=== PATIENT | female | born 1950 | race Caucasian/White ===

== ENCOUNTER 2017-05-17 08:36 | Inpatient (IN) | payer MEDICARE, MEDICAID ==
[~2017-05-17] VITALS: Ht 170.2 cm; Wt 80.0 kg
[2017-05-17] VITALS (15 sets, daily range): BP systolic 135–171; BP diastolic 62–92; PULSE 56–68; RESP 13–21; O2SAT 98–100
[2017-05-17] MEDS: Lactated Ringer's 1,000 ML IV SCH ×4 (05:00→12:28)
--- NOTE | 2017-05-17 06:40 | PCM.HPANE ---
Patient Data Surgeon Admitting Provider: Attending Provider:Scott Durand DO Primary Care Physician:Tato Ovalle DO Other Provider:Elvi Lehman Anesthesia Reason for Visit Right Knee Failed Arthroplasty Ht/WT & BMI Height (Feet): 5 Height (Inches): 7 Weight (Kilograms): 85.27 Body Mass Index 29.00 Allergies Coded Allergies: Penicillins (Verified Allergy, Severe, Rash,Itching,, 06/19/16) gabapentin (Verified Adverse Reaction, Intermediate, Headache, 06/19/16) codeine (Verified Adverse Reaction, Mild, Nausea,Vomiting, 06/19/16) OK IF TAKES ZOFRAN BEFORE oxycodone HCl (Verified Adverse Reaction, Unknown, sick to stomach, ) Past Anesthesia History Anesthesia History: Denies:: Anesthesia Reactions, Fam Anesthesia Reaction, Fam Malignant Hypertherm, Malignant Hyperthermia Diabetes History Hx Diabetes?: No MRSA MRSA: No Medications Blood Thinner: Aspirin Hypertension Medication: Yes Home Meds Incl Beta Armen: No Reported Medications Travoprost (Travatan Z)5 Ml Drops1 Drop AFFECT_EYE HS #5 05/17/17 Timolol Maleate 5 Ml Elda.gel1 Drop AFFECT_EYE DAILY #5 05/17/17 Hydrocodone-Acetaminophen 5-325 mg 1 Each Tablet1 Tablet PO Q4H PRN For Pain Ref 0 05/17/17 Tramadol 50 Mg Jibxsj92 Mg PO PRN #30 05/17/17 Ondansetron (Zofran)4 Mg Tablet4 Mg PO Q4H PRN For Nausea 05/13/17 Bupropion ER (Wellbutrin SR)100 Mg Tablet.er100 Mg PO TID Ref 0 05/13/17 Omeprazole 20 Mg Capsule.dr20 Mg PO DAILY Ref 0 05/13/17 Bisbee-3 Fatty Acids/Fish Oil (Bisbee 3 Fish Oil Softgel)1 Each Capsule.dr1 Each PO DAILY 05/13/17 Multivitamin (Multi Vitamin Daily)1 Each Tablet1 Each PO DAILY 30 Days Ref 0 05/13/17 Lisinopril 10 Mg Ehainj81 Mg PO DAILY 30 Days Ref 0 05/13/17 Levothyroxine 75 Mcg Qaejsd48 Mcg PO DAILY Ref 0 05/13/17 Ubidecarenone/Vitamin E Mixed (Phz67-Dab E 100 mg-10 Unit Sfg)100 Mg-10 Unit Capsule1 Each PO DAILY 05/13/17 Aspirin 325 Mg Buccmz498 Mg PO DAILY #1 BOTTLE 05/13/17 Discontinued Reported Medications Atenolol 25 Mg Fquvnp18.5 Mg PO DAILY Ref 0 06/07/15 Cholecalciferol (Vitamin D3) (Vitamin D-3)2,000 Unit Tablet2,000 Unit PO DAILY 07/22/14 Lansoprazole (Prevacid)15 Mg Capsule.dr15 Mg PO DAILY #30 CAPSULE Ref 0 07/22/14 Bisbee-3 Fatty Acids/Fish Oil (Bisbee 3 1,000 mg Softgel)1 Each Capsule1 Each PO DAILY 07/22/14 Multivitamin (Multivitamins)1 Each Tablet1 Each PO DAILY 07/22/14 Lisinopril 40 Mg Suezpe76 Mg PO DAILY 30 Days Ref 0 07/22/14 Levothyroxine 25 Mcg Xmdxtg39 Mcg PO DAILY 30 Days Ref 0 07/22/14 Hydrochlorothiazide 12.5 Mg Gctbvd86.5 Mg PO DAILY 30 Days Ref 0 07/22/14 Fluoxetine 20 Mg Sbhhnan89 Mg PO DAILY 30 Days Ref 0 07/22/14 Aspirin (Ecotrin)325 Mg Tablet.dr325 Mg PO DAILY 07/22/14 History History of ENT Problems?: No HEENT History: Positive for:: Glaucoma Hearing Problem Sinus Problem (nose runs cont, related to OCC THERAPY ASST shunt) Denies:: Cataracts Dysphagia Denture Type: None Teeth Condition: Within Normal Limits Hx of Heart Problems?: Yes Cardiovascular History: Positive for:: Edema Hypertension Irregular Heartbeat (bradycardia) Valvular Heart Disease (echo 2013- ef 60-65%) Denies:: AICD Cardiac Surgery Chest Pain Congestive Heart Failure Heart Murmur Pacemaker Peripheral Vascular Rheumatic Fever Thrombophlebitis Hx of Respiratory Problem?: Yes Respiratory History: Positive for:: Pneumonia (single incident, remote hx ) Denies:: Asthma COPD Chest Surgery Dyspnea Emphysema Hemoptysis Oxygen Administration Pulmonary Embolism Tuberculosis Use of C-PAP Machine (KAYODE+, could not tolerate CPAP) Use of Inhalers / NEBS Hx Neurologic Problems?: Yes Neurological History: Positive for:: 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 Skin History: Denies:: History Skin Disorders? Pressure Ulcers Hx Musculoskeletal Problems?: Yes Musculoskeletal History: Positive for:: Back Injury (back aches frequent. prior hx injections, no surg) Degenerative Joint Fibromyalgia Joint Replacement (bilat. 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 Denies:: Blood Transfuse Reaction Blood Transfusions Hx Diabetes: No Hx Alcohol Use: NoHx Substance Use: No Smoking Status: Never Smoker Have You Smoked inLast 12 mo: No Stop/Bang S-Snoring: Do You Snore Loudly: No T-Tired: feel tired, fatigued: Yes O-Obsered: Observed not breath: No P-Blood Pressure: treated: Yes B- Body Mass Index > 35 kg/m2: No A- Age over 50: Yes N- Neck Large Circumference: No G- Gender Male: No KAYODE Total Score: 3 KAYODE Risk Assessment: Low Risk, <3 Yes Risk Assessment Category Category 1A: Patient has history of documented sleep apnea, and HAS NOT received any narcotic, sedative or anesthesia administration during this stay. Category 1B: Patient has history of documented sleep apnea, and HAS received any narcotic , sedative or anesthesia administration during this stay Category 2: Patient has SUSPECTED Obstructive Sleep Apnea, and HAS received any narcotic , sedative or anesthesia administration during this stay. Category 3: Patient has SUSPECTED Obstructive Sleep Apnea and HAS NOT received narcotic, sedative or anesthesia administration during this stay. Category 4: Outpatient in Procedural Areas with known sleep apnea or who screen positive for High Risk via the STOP/BANG questionnaire. Exam Exam General Appearance: Alert, Oriented X3, Cooperative, No Acute Distress HEENT/AIRWAY: MP 2 Lungs: Clear to Auscultation, Normal Air Movement Heart: Exam Unremarkable, Regular Rate/Rhythm, No Murmurs/Rubs/Gallops Plan Impression Patient chart reviewed, patient interviewed and anesthestic plan with risks, benefits, and alternatives discussed, and informed consent obtained. NPO per Anesth. Guidelines: Yes ASA Physical Status: ASA2 Mod Systemic Disease Anesthetic Plan: GA, Regional Block, SAB Bene/Risks/Altern/Consents: Yes HP Complete Prior to Induction: Yes Other Cerebral aneurysm, clipping and shunt plus CVA 2009. Stable for many years. Cheyanne Laurent MD May 17, 2017 06:40
[~2017-05-17 08:36] MED LIST: ASPI325T32 PO; BUPR100T7 PO; Bupivacaine Liposome 1.3% 20 mL Inj INFILTRATE SCH; CeFAZolin 2 Gm/50 mL D5W IV Premix IV ONE; LEVO75TA4 PO; LISI10TA PO; MULT-1018 PO; OMEG1CAP25 PO; OMEP20CA11 PO; ONDA4TAB6 PO; UBID1CAP58 PO; Vancomycin Inj 1,250 MG in 0.9% Sodium Chloride 250 ML IV ONE
[2017-05-17] MEDS ORDERED: Vancomycin 1,000mg/200 mL NS IV ONE (08:50)
[2017-05-17] MEDS ORDERED: HYDR-4003 PO (08:51)
[2017-05-17] MEDS ORDERED: TRAM50TA2 PO (08:51)
[2017-05-17] MEDS ORDERED: TIMO5SOL6 AFFECT_EYE (08:58)
[2017-05-17] MEDS ORDERED: TRAV5DRO AFFECT_EYE (08:58)
[2017-05-17] MEDS ORDERED: Lactated Ringer's 1,000 ML IV SCH (11:09)
[2017-05-17] MEDS ORDERED: Lactated Ringer's 500 ML IV PRN (11:09)
[2017-05-17] MEDS ORDERED: HYDROmorphone 1 mg/mL Inj IVPUSH PRN ×2 (11:10→15:40)
[2017-05-17] MEDS ORDERED: fentaNYL-PF 50 mCg/mL 2 mL Inj IVPUSH PRN (11:10)
[2017-05-17] MEDS ORDERED: Labetalol 5 mg/mL 4 mL Inj IV PRN (11:10)
[2017-05-17] MEDS ORDERED: Phenylephrine 10,000 mCg/mL Inj IVPUSH PRN (11:10)
[2017-05-17] MEDS ORDERED: EPHEDrine Sulfate 50 mg/mL Inj IVPUSH PRN (11:10)
[2017-05-17] MEDS ORDERED: Dexamethasone 4 mg/mL Inj IVPUSH PRN (11:10)
[2017-05-17] MEDS ORDERED: MetoCLOpramide 5 mg/mL 2 mL Inj IVPUSH PRN (11:10)
[2017-05-17] MEDS ORDERED: Atropine 0.4 mg/mL Inj IVPUSH PRN (11:10)
[2017-05-17] MEDS ORDERED: Ondansetron 2 mg/mL 2 mL Inj IVPUSH PRN (11:10)
[2017-05-17] MEDS ORDERED: 0.9% Sodium Chloride 10 mL Inj INFILTRATE ONE (11:18)
[2017-05-17] MEDS ORDERED: Bupivacaine-MPF 0.5% W/EPI 30 mL Inj INFILTRATE ONE (11:18)
[2017-05-17] MEDS ORDERED: Magnesium Hydroxide 10 mL Oral Concentration PO PRN (12:20)
[2017-05-17] MEDS ORDERED: Polyethylene Glycol (PEG) 17 Gm Powder PO PRN (12:20)
[2017-05-17] MEDS ORDERED: diphenhydrAMINE 25 mg Capsule PO PRN (12:20)
[2017-05-17] MEDS ORDERED: HYDROcodone-APAP 5-325 mg Tablet PO PRN (12:20)
[2017-05-17] MEDS ORDERED: Acetaminophen IV 1,000 MG in IV Premix 1 EACH IV ONE (12:20)
[2017-05-17] MEDS ORDERED: 0.9% Sodium Chloride 1,000 ML IV SCH (12:20)
[2017-05-17] MEDS ORDERED: Ketorolac 15 mg/mL Inj IVPUSH PRN (12:20)
[2017-05-17] MEDS ORDERED: hydrOXYzine Pamoate 25 mg Capsule PO PRN (12:20)
[2017-05-17] MEDS ORDERED: hydrOXYzine Inj 50 MG/1 mL SDV IM ONE ×3 (13:20→15:38)
--- NOTE | 2017-05-17 13:29 | PCM.ANEP1 ---
Post Anesthesia PACU Phase 1 Assessment Vital Signs Vital Signs Date Time Temp Pulse Resp B/P Pulse Ox O2 Delivery O2 Flow Rate FiO2 05/17/17 13:20 56 14 158/74 99 Room Air 05/17/17 13:10 58 16 161/62 98 Room Air 05/17/17 13:05 15 99 05/17/17 13:00 57 16 159/74 100 Room Air 05/17/17 12:55 58 13 168/69 100 Room Air 05/17/17 12:50 56 14 154/72 99 Simple Mask 10 05/17/17 12:45 36.0 59 17 147/73 99 Room Air 10 05/17/17 08:59 35.9 61 17 144/82 100 Room Air Anesthetic Administered: SAB Level of Alertness: Awake, talking ARMAS's with Equal Strength: No Pain: No Nausea or Vomiting: Yes CV Function & Hydration Stable: Yes Airway Device: Oxygen Delivery: Room Air Lungs: Clear to Auscultation, Normal Air Movement Dermatome Level: T12 (Symphysis Pubis) PACU Phase 2 Assessment Patient Instructions Provided: N/A Comments n and v throughout case. no agent or drug given that commonly causes n and v Treated with Dex 4 Ond 4 x 2. Metoclpramide in PACU then add Vistaril 25 IM x once only Cheyanne Laurent MD May 17, 2017 13:29
--- NOTE | 2017-05-17 13:37 | DRSVH ---
PROCEDURE: X-RAY RIGHT KNEE, ONE OR TWO VIEWS ([id number]) INDICATIONS: post op TECHNIQUE: 2 views of the knee were acquired. COMPARISON: [facility], CR, XR KNEE 3VW RT, 12/16/2016, 10:35. FINDINGS: Expected postoperative changes of the knee are present related to a total right knee arthroplasty. T he metallic prosthetic components are appropriately positioned without periprosthetic fracture or elías ency. Expected postoperative changes within the overlying soft tissues are present with soft tissue edema and soft tissue air. A bandage is seen overlying the anterior margin of the knee. Vascular ca lcifications are present. IMPRESSION: Expected postoperative changes related to a right knee arthroplasty. Dictated by: Steven Bell M.D. on 05/17/2017 at 12:34 Approved by: Steven Bell M.D. on 05/17/2017 at 12:35
--- NOTE | 2017-05-17 14:55 | OP ---
[address] [address] OPERATIVE REPORT PATIENT: MAHENDRA BERTRAND : 1950 MR#: [id number] ADMIT: 05/17/2017 JOB ID: [id number] DATE OF SURGERY: 05/17/2017 PREOPERATIVE DIAGNOSIS(ES): Right knee failed total knee arthroplasty. POSTOPERATIVE DIAGNOSIS(ES): Right knee failed total knee arthroplasty. PROCEDURE: Right total knee arthroplasty revision patella with polyethylene exchange. SURGEON: Scott Durand D.O. DRUM ATTENDANT: Blanca Angel PA-C INDICATIONS: The patient is a 67-year-old female who had a total knee arthroplasty performed in 2009 by another surgeon and has had persistent pain over her anterior knee. We did a workup and ruled out infection or loosening, but she did have an abnormality of the patella and appeared to have abnormal patellar tracking potentially causing contact pressure with bone articulating on the metal prosthesis. We discussed treatment options for this and she wished to proceed with a revision surgery. We discussed risks, benefits, and possible complications of surgery including, but not limited to injury to nerves and vessels, infection, bleeding, incomplete relief of symptoms, need for additional procedures, and the patient had good understanding. All questions were answered and she wished to proceed. A surgical garment inspector was required for the successful completion of this procedure. PROCEDURE IN DETAIL: The patient is brought to the operating room. She was given a preoperative antibiotic, spinal anesthetic, as well as femoral nerve block and 1 g preoperatively. Surgical time out was performed. The right knee was sterilely prepped and draped. I elected to not use the tourniquet as she had some calcified vessels on x-ray in her posterior thigh and an incision was made over her previous surgical incision over the anterior knee. Dissection was carefully carried through the subcutaneous tissue. Electrocautery was used for hemostasis. Her previous quad tendon split was free utilized which was evident by the nonabsorbable sutures. This was taken along the medial retinaculum and down onto the proximal medial tibial face. There was quite a bit of dense adherent scar tissue within the knee joint and adherent to the synovium. The gutters were re-established by resecting out this dense fibrous scar tissue and performing a synovectomy. The patella was then everted and clearly the patellar button which had been implanted was not articulating with the prosthesis and there was a portion of the bone on the lateral side of the patella which was worn from articulating with the prosthesis and likely the cause of her pain. After the synovectomy was performed, I removed the polyethylene component and did some trials with different polyethylene components. Elected to ultimately reinsert a new size 9 thickness high flexion Legion poly from [employer] after some additional medial release and synovectomy was performed. The patella was also resurfaced. I used a precision saw to cut at the bone prosthesis interface and the old patellar button was removed quite easily. The initial patellar cut that the original surgeon had made left the patella quite thin and was at an oblique angle. Unfortunately I cleaned up the cut in order to make it a nice flat cut, but had to leave some of the medial aspect deficient as the original cut was simply too tilted to resect and have a completely flat surface, a cut from an initial thickness of 13, moving only about 0.5 mm to 1 mm of bone to a thickness of about 12. A 29 oval patella button was chosen, drilled for and trialed. This had excellent tracking and the wound was then irrigated and the size 29 [employer] Jyothi II resurfacing oval patellar component was cemented into position. All excess cement was removed. Elected to use gentamicin bone cement in the revision situation. After the cement had been allowed to polymerize, a size 9 Legion cruciate retaining highly cross-linked polyethylene insert was placed. The wound was then irrigated copiously to remove any residual bone, polyethylene or cement debris and then closed with #1 Surgilon to repair the quad tendon and medial retinaculum. The remainder of the tendon was closed with 0-Vicryl. The subcu was closed with a running 2-0 V-Lock and 3-0 V-Lock subcuticular for the skin. A mixture of Marcaine and Exparel diluted with saline was added as an adjunct local anesthetic. Sterile dressings were applied. The patient tolerated the procedure well. Blood loss was 100 cc. POSTOPERATIVE PROTOCOL: Will have the patient weightbear to tolerance. Use walker for ambulation and will plan to use aspirin for DVT prophylaxis. I think she can take aspirin 325 b.i.d. while in the hospital and then switch to 325 daily for six weeks postoperatively. She has a difficult time with narcotic pain medications but will hopefully be able to tolerate low-dose Piru 5/325 for pain as well as Tylenol.
--- NOTE | 2017-05-17 15:00 | NUR ---
PostOp Pt comes from PACU on RA, A&OX4, no c/o pain. Denies CP, SOB and nausea at this time. Did have some nausea in PACU earlier. Right leg ROBERTO wrapped. IV in use. No c/o pain at this time. Right sided weakness baseline for pt r/t previous CVA. Care continues
[2017-05-17] MEDS ORDERED: Sodium Chloride LOK Flush 10 mL Syringe IV SCH (16:30)
[2017-05-17 17:11] LABS: APPEARANCE,URINE CLEAR (CLEAR,HAZY); COLOR,URINE YELLOW (YELLOW); OCCULT BLOOD,URINE NEGATIVE (NEGATIVE); PH,URINE 7.5 (5.0-8.0); UROBILINOGEN,URINE NORMAL (NORMAL)
[2017-05-17] MEDS ORDERED: Dexamethasone 4 mg/mL Inj ONE (18:29)
[2017-05-17] MEDS ORDERED: Ondansetron 2 mg/mL 2 mL Inj ONE (18:29)
[2017-05-17] MEDS ORDERED: fentaNYL-PF 50 mCg/mL 2 mL Inj ONE (18:29)
--- NOTE | 2017-05-17 18:40 | NUR ---
AMA Pt requests to leave AMA. Pt states that her pain is under control but she hates the bed and food. Encouraged her that we can try changing beds and try different foods but pt declines and states that her is on the way. Spoke with pt for 20+ minutes regarding care and all of the risks for leaving against medical advice including but not limited to: DVTs, Falls (expressed concern regarding her unsteadiness on feet r/t right sided weakness), uncontrolled pain especially once the nerve block wears off (this was explained in detail), high risk of infection r/t missing antibiotics, costs of surgery which can be more than $20,000. Pt signed AMA paperwork with the understanding that she knows that she has stairs up to her home and has only gotten up with staff once to commode. Pt states that she understands all of the risks and the fact that we are trying to work with her to make her more comfortable. All of the risks were reviewed with who understands and is concerned for her health but states that "I can't make her do anything, she can make her own decisions". Pt states that she has had pain for years and knows how to control this. She states that she has pain medication at home in which she can use. Pt was made aware that this RN can not give medical advice on how to take the pain medications in which she has at home. Pt states that she already knows how. Advised the pt to call the ortho clinic in the morning for further instructions regarding the incision and dressings over her surgery site but to keep site dry and in tact. MD NUNEZ advised. Charge Nurse Advised Pt leaves AMA with . Pt taken via WC out to car. Care discontinues
[2017-05-17] MEDS ORDERED: CeFAZolin Inj 2 GM in IV Premix 1 EACH IV SCH (19:00)
[2017-05-17] MEDS ORDERED: Senna-Docusate 8.6-50 mg Tablet PO SCH (20:30)
== END 2017-05-17 18:30 | disposition left against medical advice (07) | DRG 468 ==
LOC: SAS 08:36 → OSC 15:05
PROVIDERS: ADMIT Orthopaedic Surgery; ATTEND Orthopaedic Surgery
PROC: 0SPC09Z Removal of Liner from Right Knee Joint, Open Approach (ICD-10-PCS; 2017-05-17)
PROC: 0SPC0JZ Removal of Synthetic Substitute from Right Knee Joint, Open Approach (ICD-10-PCS; 2017-05-17)
PROC: 0SUC09C Supplement Right Knee Joint with Liner, Patellar Surface, Open Approach (ICD-10-PCS; 2017-05-17)
PROC: 0SRC0J9 Replacement of Right Knee Joint with Synthetic Substitute, Cemented, Open Approach (ICD-10-PCS; principal; 2017-05-17 10:45)
DX: T84.062A Wear of articular bearing surface of internal prosthetic right knee joint, initial encounter (principal); I10 Essential (primary) hypertension; E03.9 Hypothyroidism, unspecified; T84.092A Other mechanical complication of internal right knee prosthesis, initial encounter